=== PATIENT | male | born 1935 | race Caucasian/White ===

== ENCOUNTER 2023-07-25 13:24 | Outpatient (REF) | payer MEDICARE, SELFPAY | END 2023-07-25 13:25 | disposition home or self-care (01) | LOC: HO.SH 13:24 | PROVIDERS: Visit Provider Student in an Organized Health Care Education/Training Program | DX: Z01.118 Encounter for examination of ears and hearing with other abnormal findings (principal); H90.3 Sensorineural hearing loss, bilateral | CPT/HCPCS: 92557; 92567 ==